=== PATIENT | female | born 1995 | race Hispanic/Latino ===

== ENCOUNTER 2022-02-21 08:07 | Emergency (ER) | payer BC ==
--- OUTSIDE RECORDS SUMMARY | 2022-02-21 08:10 | XMS REPORT | Continuity of Care Document ---
:1995 Author Organization [facility] t Address [address] [place] [address] Care Team Providers Name Role Phone Pcp, Patient Does Not Have A Primary Care Physician [id number] LANIE FLORES Attending Clinician Unavailable Sandra PRINCIPAL STRATEGISTLanie Attending Clinician Richa Antoine MD Attending Clinician Richa ROMERO, Sugey Wen Attending Clinician Unavailable Starla Vincent Attending Clinician RICHA ANTOINE Attending Clinician Unavailable Adiel Joseph MD Attending Clinician ADIEL JOSEPH Attending Clinician Unavailable Provider, [facility] Attending Clinician Unavailable STARLA AGUILERA Attending Clinician Unavailable Payers Payer Name Policy Type Policy Number Effective Date Expiration Date S angeliaelan [facility] [id number] 2020 00:00:00 Problems Condition Condition Condition Status Onset Resolution Last Treating Co mments Source Name Details Category Date Date Treatment Clinician Date No known No known Disease Unive rs active active ity of problems problems [facility] Allergies, Adverse Reactions, Alerts Allergy Allergy Status Severity Reaction(s) Onset Inactive Treating Comm ents Source Name Type Date Date Clinician NO KNOWN Drug Active Univers ALLERGIE Class ity of S [facility] Social History Social Habit Start Date Stop Date Quantity Comments Source Exposure to Not sure [facility] SARS-CoV-2 (event) Medica l Branch Tobacco use and 2018-09-01 2018-09-01 Never used [facility] [place] exposure 00:00:00 00:00:00 [facility] Branch Sex Ass[birth year] At [birth year] [facility] 00:00:00 00:00:00 Medical Branch Smoking Status Start Date Stop Date Source Never smoker [facility] Medications Ordered Filled Start Stop Current Ordering Indication Dosage Frequency Signature Comments Components Source Medication Medication Date Date Medication? Clinician (SIG) Name Name fexofenadin Yes [id number] 1{tbl} Take 1 Univers e-pseudoeph 1-25 tablet by ity of edrine 00:00: mouth 2 [place] (JENNIFER-D) 00 (two) Medical 60-120 mg times Branch per tablet daily. METHIMAZOLE Yes Take by Uni vers ORAL 4-17 mouth. ity of 17:48: [address] pantoprazol Yes Take by Uni vers e sodium 4-17 mouth. ity of (PANTOPRAZO 17:48: [place] LE ORAL) [address] [place] [address] METHIMAZOLE Yes Take by Uni vers ORAL 4-17 mouth. ity of 17:48: [address] pantoprazol Yes Take by Uni vers e sodium 4-17 mouth. ity of (PANTOPRAZO 17:48: [place] LE ORAL) [address] [place] [address] METHIMAZOLE Yes Take by Uni vers ORAL 4-17 mouth. ity of 17:48: [address] pantoprazol Yes Take by Uni vers e sodium 4-17 mouth. ity of (PANTOPRAZO 17:48: [place] LE ORAL) [address] [place] [address] METHIMAZOLE Yes Take by Uni vers ORAL 4-17 mouth. ity of 17:48: [address] pantoprazol Yes Take by Uni vers e sodium 4-17 mouth. ity of (PANTOPRAZO 17:48: [place] LE [place]AL) [address] [place] [address] METHIMAZOLE Yes Take by Uni vers ORAL 4-17 mouth. ity of 17:48: [address] pantoprazol Yes Take by Uni vers e sodium 4-17 mouth. ity of (PANTOPRAZO 17:48: [place] LE [place]AL) [address] [place] [address] METHIMAZOLE Yes Take by Uni vers ORAL 4-17 mouth. ity of 17:48: [place] [address] Medical Branch pantoprazol Yes Take by Uni vers e sodium 4-17 mouth. ity of (PANTOPRAZO 17:48: [place] LE ORAL) Medical Branch METHIMAZOLE Yes Take by Uni vers ORAL 4-17 mouth. ity of 17:48: [address] Branch pantoprazol Yes Take by Uni vers e sodium 4-17 mouth. ity of (PANTOPRAZO 17:48: [place] LE ORAL) [address] [place] [address] Branch METHIMAZOLE Yes Take by Uni vers ORAL 4-17 mouth. ity of 17:48: [address] Branch pantoprazol Yes Take by Uni vers e sodium 4-17 mouth. ity of (PANTOPRAZO 17:48: [place] LE ORAL) [address] [place] [address] Branch METHIMAZOLE Yes Take by Un [facility] ORAL 4-17 mouth. ity of 17:48: [address] Branch pantoprazol Yes Take by Uni vers e sodium 4-17 mouth. ity of (PANTOPRAZO 17:48: [place] LE ORAL) [address] [place] [address] Branch METHIMAZOLE Yes Take by Uni vers ORAL 4-17 mouth. ity of 17:48: [address] Branch pantoprazol Yes Take by Uni vers e sodium 4-17 mouth. ity of (PANTOPRAZO 17:48: [place] LE ORAL) [address] [place] [address] Branch METHIMAZOLE Yes Take by Uni vers ORAL 4-17 mouth. ity of 17:48: [address] Branch pantoprazol Yes Take by Uni vers e sodium 4-17 mouth. ity of (PANTOPRAZO 17:48: [place] LE ORAL) [address] [place] [address] Branch METHIMAZOLE Yes Take by Uni vers ORAL 4-17 mouth. ity of 12:48: [address] Branch pantoprazol Yes Take by Uni vers e sodium 4-17 mouth. ity of (PANTOPRAZO 12:48: [place] LE ORAL) [address] [place] [address] ondansetron Yes [id number] 8mg Take 1 Univers (ZOFRAN 4-17 tablet by ity of ODT) 8 mg 00:00: mouth [place] disintegrat 00 every 8 Medic al ing tablet (eight) Branch hours as needed for Nausea and Vomiting (N/V). ondansetron 2020-0 Yes [id number] 8mg Take 1 Univers (ZOFRAN 4-17 tablet by ity of ODT) 8 mg 00:00: mouth [place] disintegrat 00 every 8 Medic al ing tablet (eight) Branch hours as needed for Nausea and Vomiting (N/V). ondansetron 2020-0 Yes [id number] 8mg Take 1 Univers (ZOFRAN 4-17 tablet by ity of ODT) 8 mg 00:00: mouth [place] disintegrat 00 every 8 Medic al ing tablet (eight) Branch hours as needed for Nausea and Vomiting (N/V). ondansetron 2020-0 Yes [id number] 8mg Take 1 Univers (ZOFRAN 4-17 tablet by ity of ODT) 8 mg 00:00: mouth [place] disintegrat 00 every 8 Medic al ing tablet (eight) Branch hours as needed for Nausea and Vomiting (N/V). ondansetron 2020-0 Yes [id number] 8mg Take 1 Univers (ZOFRAN 4-17 tablet by ity of ODT) 8 mg 00:00: mouth [place] disintegrat 00 every 8 Medic al ing tablet (eight) Branch hours as needed for Nausea and Vomiting (N/V). ondansetron 2020-0 Yes [id number] 8mg Take 1 Univers (ZOFRAN 4-17 tablet by ity of ODT) 8 mg 00:00: mouth [place] disintegrat 00 every 8 Medic al ing tablet (eight) Branch hours as needed for Nausea and Vomiting (N/V). ondansetron 2020-0 Yes [id number] 8mg Take 1 Univers (ZOFRAN 4-17 tablet by ity of ODT) 8 mg 00:00: mouth [place] disintegrat 00 every 8 Medic al ing tablet (eight) Branch hours as needed for Nausea and Vomiting (N/V). ondansetron 2020-0 Yes [id number] 8mg Take 1 Univers (ZOFRAN 4-17 tablet by ity of ODT) 8 mg 00:00: mouth [place] disintegrat 00 every 8 Medic al ing tablet (eight) Branch hours as needed for Nausea and Vomiting (N/V). ondansetron 2020-0 Yes [id number] 8mg Take 1 Univers (ZOFRAN 4-17 tablet by ity of ODT) 8 mg 00:00: mouth [place] disintegrat 00 every 8 Medic al ing tablet (eight) Branch hours as needed for Nausea and Vomiting (N/V). ondansetron 2020-0 Yes [id number] 8mg Take 1 Univers (ZOFRAN 4-17 tablet by ity of ODT) 8 mg 00:00: mouth [place] disintegrat 00 every 8 Medic al ing tablet (eight) Branch hours as needed for Nausea and Vomiting (N/V). ondansetron 0 Yes [id number] 8mg Take 1 Univers (ZOFRAN 4-17 tablet by ity of ODT) 8 mg 00:00: mouth [place] disintegrat 00 every 8 Medic al ing tablet (eight) Branch hours as needed for Nausea and Vomiting (N/V). ondansetron Yes [id number] 8mg Take 1 Univers (ZOFRAN 4-17 tablet by ity of ODT) 8 mg 00:00: mouth [place] disintegrat 00 every 8 Medic al ing tablet (eight) Branch hours as needed for Nausea and Vomiting (N/V). ondansetron 2019-0 Yes [id number] 4mg Take 1 Univers 4 mg 4-06 tablet by ity of disintegrat 00:00: mouth 2 [place] as ing tablet 00 (two) Medical times Branch daily as needed for Nausea and Vomiting (N/V). ondansetron 2018-0 Yes [id number] 4mg Take 1 Univers 4 mg 4-06 tablet by ity of disintegrat 00:00: mouth 2 [place] as ing tablet 00 (two) Medical times Branch daily as needed for Nausea and Vomiting (N/V). ondansetron 2019-0 Yes [id number] 4mg Take 1 Univers 4 mg 4-06 tablet by ity of disintegrat 00:00: mouth 2 [place] as ing tablet 00 (two) Medical times Branch daily as needed for Nausea and Vomiting (N/V). ondansetron 2019-0 Yes [id number] 4mg Take 1 Univers 4 mg 4-06 tablet by ity of disintegrat 00:00: mouth 2 [place] as ing tablet 00 (two) Medical times Branch daily as needed for Nausea and Vomiting (N/V). ondansetron 2019-0 Yes [id number] 4mg Take 1 Univers 4 mg 4-06 tablet by ity of disintegrat 00:00: mouth 2 [place] as ing tablet 00 (two) Medical times Branch daily as needed for Nausea and Vomiting (N/V). ondansetron 2019-0 Yes [id number] 4mg Take 1 Univers 4 mg 4-06 tablet by ity of disintegrat 00:00: mouth 2 [place] as ing tablet 00 (two) Medical times Branch daily as needed for Nausea and Vomiting (N/V). ondansetron 2019-0 Yes [id number] 4mg Take 1 Univers 4 mg 4-06 tablet by ity of disintegrat 00:00: mouth 2 [place] ing tablet 00 (two) Medical times Branch daily as needed for Nausea and Vomiting (N/V). ondansetron 2019-0 Yes [id number] 4mg Take 1 Univers 4 mg 4-06 tablet by ity of disintegrat 00:00: mouth 2 [place] as ing tablet 00 (two) Medical times Branch daily as needed for Nausea and Vomiting (N/V). ondansetron 2019-0 Yes [id number] 4mg Take 1 Univers 4 mg 4-06 tablet by ity of disintegrat 00:00: mouth 2 [place] as ing tablet 00 (two) Medical times Branch daily as needed for Nausea and Vomiting (N/V). ondansetron 2019-0 Yes [id number] 4mg Take 1 Univers 4 mg 4-06 tablet by ity of disintegrat 00:00: mouth 2 [place] as ing tablet 00 (two) Medical times Branch daily as needed for Nausea and Vomiting (N/V). ondansetron 2019-0 Yes [id number] 4mg Take 1 Univers 4 mg 4-06 tablet by ity of disintegrat 00:00: mouth 2 [place] as ing tablet 00 (two) Medical times Branch daily as needed for Nausea and Vomiting (N/V). ondansetron 2019-0 Yes [id number] 4mg Take 1 Univers 4 mg 4-06 tablet by ity of disintegrat 00:00: mouth 2 [place] as ing tablet 00 (two) Medical times Branch daily as needed for Nausea and Vomiting (N/V). Vital Signs Vital Name Observation Time Observation Value Comments Source Body weight 2021-06-23 00:54:00 86.637 kg [facility] BMI 2021-06-23 00:54:00 31.78 kg/m2 [facility] Oxygen saturation in 2021-06-23 00:54:00 98 /min University of Arterial blood by [facility] Pulse oximetry Branch Systolic blood 2021-06-23 00:54:00 115 mm[Hg] Univer sity of pressure [place] [facility] Diastolic blood 2021-06-23 00:54:00 82 mm[Hg] Unive rsity of pressure [place] [facility] Heart rate 2021-06-23 00:54:00 79 /min Universi ty of [place] [facility] Body temperature 2021-06-23 00:54:00 36.39 Aster Univ ersity of [place] [facility] Respiratory rate 2021-06-23 00:54:00 16 /min Univ ersity of [place] [facility] Body height 2021-06-23 00:54:00 165.1 cm Universi ty of [place] [facility] Systolic blood 2021-01-27 17:07:00 124 mm[Hg] Univer sity of pressure [place] [facility] Diastolic blood 2021-01-27 17:07:00 86 mm[Hg] Unive rsity of pressure [place] [facility] Heart rate 2021-01-27 17:07:00 89 /min Universi ty of [place] [facility] Body temperature 2021-01-27 17:07:00 37.33 Aster Univ ersity of [place] [facility] Body weight 2021-01-27 17:07:00 86.665 kg Universi ty of [place] [facility] BMI 2021-01-27 17:07:00 31.79 kg/m2 Universi ty of [place] [facility] Oxygen saturation in 2021-01-27 17:07:00 98 /min University of Arterial blood by [facility] Pulse oximetry Branch Systolic blood 2020-09-12 17:45:00 117 mm[Hg] Univer sity of pressure [place] [facility] Diastolic blood 2020-09-12 17:45:00 80 mm[Hg] Unive rsity of pressure [place] [facility] Heart rate 2020-09-12 17:45:00 93 /min Universi ty of [place] [facility] Body temperature 2020-09-12 17:45:00 37.28 Aster Univ ersity of [place] [facility] Respiratory rate 2020-09-12 17:45:00 16 /min Univ ersity of [place] [facility] Body height 2020-09-12 17:45:00 165.1 cm [facility] Body weight 2020-09-12 17:45:00 81.647 kg [facility] BMI 2020-09-12 17:45:00 29.95 kg/m2 [facility] Oxygen saturation in 2020-09-12 17:45:00 98 /min [facility] blood by [facility] Pulse oximetry [place] Procedures This patient has no known procedures. Encounters Start End Encounter Admission Attending Care Care Encounter Source Date/Time Date/Time Type Type Clinicians Facility Department ID 2021-06-22 2021-06-22 Outpatient R SANDRA [facility] [id number] Univers 19:00:00 19:25:46 LANIE patel o f [facility] 2021-06-22 2021-06-22 Urgent Lanie Flores [facility] [id number] Univers 19:00:00 19:25:46 Celeste Antoine [facility] [id number] ity of [place] [id number] [place] as LUIS?BLEA [phone] [address] MEDICAL OFFICE BUILDING 2021-06-22 2021-06-22 Outpatient R [facility] [id number] Univers 19:00:00 19:00:[id number] [facility] 2021-01-29 2021-01-29 Letter JABARI Chaudhry [id number] Univers 00:00:00 00:00:00 (Out) Sugey JOHNSON [id number] it y of [facility] [id number] [place] as [id number] [address] 2021-01-27 2021-01-27 Urgent Starla Aguilera [facility] [id number] Univers 10:43:43 11:03:43 [facility] [id number] ity of [place] [id number] [place] as Luis?Blea [id number] [address] Medical Office Building 2021-01-27 2021-01-27 Outpatient R [facility] [id number] Univers 11:00:00 11:00:[id number] [facility] 2021-01-27 2021-01-27 Outpatient R ARASH [facility] [id number] Univers 11:00:00 11:00:[address] [facility] 2020-09-14 2020-09-14 [facility] MARVIN Joseph [id number] Univers 08:40:00 23:59:00 Encounter Adiel Carter [id number] ity of [facility] [id number] [place] as [id number] [address] 2020-09-14 2020-09-14 [facility] [id number] Univers 00:00:00 00:00:00 ADIEL [facility] [place] 2020-09-14 2020-09-14 [facility] [id number] Univers 00:00:00 00:00:00 [facility] [id number] it y of [place] [id number] [place] as Professio [id number] [address] Office Building One 2020-09-12 2020-09-12 Urgent Provider, [facility] [id number] Univers 12:42:00 13:22:46 Celeste Aguilera [facility] [id number] ity of [place] [id number] [place] as Professio [id number] [address] Office Building One 2020-09-12 2020-09-12 Outpatient R [facility] [id number] Univers 13:20:00 13:20:[id number] [facility] 2020-09-12 2020-09-12 [facility] [id number] Univers 13:20:00 13:20:00 [facility] Results This patient has no known results.
--- NOTE | 2022-02-21 08:51 | RAD REPORT ---
EXAM DESCRIPTION: US - 1St Trimest Single 1St Fetus - 02/21/2022 8:42 am CLINICAL HISTORY: with vaginal bleeding COMPARISON: None FINDINGS: The uterus measures 10 x 8 x 8 centimeters. A pole is present within the endometrium measuring 5.4 centimeters. Cardiac activity 162 beats per minute. 1.8 centimeter subchorionic bleed. Amniotic fluid appears normal. Right ovary normal in size and echotexture. Left ovary not seen secondary to overlying bowel gas. No significant free fluid IMPRESSION: Single live intrauterine with an estimated gestational age 12 weeks 0 days JOSE E 09/05/2022 1.8 centimeter subchorionic bleed If a survey is desired it should be performed in approximately 6 weeks
[2022-02-21 08:54] LABS: Absolute Lymphocytes (CBC) 1.5 K/uL (0.7-4.9); Hematocrit 38.8 % (36.0-45.0); Lymphocytes % 21.3 % (15.3-44.8); MCV 80.5 fL (80-100); MPV 8.6 fL (7.6-11.3); RBC Red Blood Cell Count 4.82 M/uL (3.86-4.86)
[2022-02-21 08:56] LABS: Urine Blood 2+ (Negative); Urine Glucose Negative (Negative); Urine Protein Negative (Negative); Urine pH 6.5 (5.0-7.0)
[2022-02-21 09:24] LABS: Potassium 3.7 mmol/L (3.5-5.1)
--- NOTE | 2022-02-21 09:28 | EDPHYS ---
Physician Documentation [facility] Name: Maria Esther Guzman Age: 26 yrs Sex: Female : 1995 Arrival Date: 02/21/2022 Time: 08:11 Bed 5 Private MD: ED Physician Rachid Girard HPI: 02/21 08:21 This 26 yrs old Female presents to ER via Ambulatory with complaints of ms3 Vaginal Bleeding, + Preg <12wks. 08:21 The patient presents to the emergency department with vaginal bleeding, that is light. ms3 The estimated gestational age is 12 weeks. course: care: private OB physician, Dr. Maria. Associated signs and symptoms: The patient has no apparent associated signs or symptoms. 26-year-old female G1, P0 with no past medical history presents for vaginal bleeding that is noted when wiping that began last night Patient denies pain at this time. Patient denies alleviating or inciting factors. Patient denies nausea, vomiting. Patient states her blood type is O+.. SUPERVISOR PRE WAVE: 08:18 1, Full Term 0, Premature 0, 0, Living 0, LMP 11/25/2021 jl7 08:21 1, Full Term 0, Premature 0, 0, Living 0, LMP 11/25/2021 ms3 Historical: - Allergies: 08:18 No Known Allergies; jl7 - Home Meds: 08:18 None [Active]; jl7 - PMHx: 08:18 None; jl7 - PSHx: 08:18 None; jl7 - Immunization history:: Client reports receiving the 2nd dose of the Covid vaccine. - Social history:: Smoking status: Patient denies any tobacco usage or history of. ROS: 08:21 Constitutional: Negative for fever, and chills. Neck: Negative for injury, pain, and ms3 swelling, Cardiovascular: Negative for chest pain, and palpitations. Respiratory: Negative for shortness of breath, cough, wheezing, and pleuritic chest pain, Abdomen/GI: Negative for abdominal pain, nausea, vomiting, diarrhea, and constipation. 08:21 : Positive for vaginal bleeding. 08:21 All other systems are negative. Exam: 08:21 Constitutional: This is a well developed, well nourished patient who is awake, alert, ms3 and in no acute distress. Head/Face: Normocephalic, atraumatic. Neck: Trachea midline, no cervical lymphadenopathy. Supple, full range of motion without nuchal rigidity, or vertebral point tenderness. No Meningismus. Chest/axilla: Normal chest wall appearance and motion. Nontender with no deformity. Cardiovascular: Regular rate and rhythm with a normal S1 and S2. No gallops, murmurs, or rubs. Normal PMI, no JVD. No pulse deficits. Respiratory: Lungs have equal breath sounds bilaterally, clear to auscultation and percussion. No rales, rhonchi or wheezes noted. No increased work of breathing, no retractions or nasal flaring. Abdomen/GI: Soft, non-tender, with normal bowel sounds. No distension or tympany. No guarding or rebound. No evidence of tenderness throughout. Skin: Warm, dry with normal turgor. Normal color with no rashes, no lesions, and no evidence of cellulitis. MS/ Extremity: Pulses equal, no cyanosis. Neurovascular intact. Full, normal range of motion. Neuro: Awake and alert, GCS 15, oriented to person, place, time, and situation. Cranial nerves II-XII grossly intact. Motor strength 5/5 in all extremities. Sensory grossly intact. Cerebellar exam normal. Normal gait. Vital Signs: 08:16 BP 129 / 105; Pulse 100; Resp 17; Temp 97.7; Pulse Ox 100% ; Weight 84.37 kg; Height 5 jl7 ft. 5 in. (165.10 cm); Pain 0/10; 09:30 BP 104 / 81; Pulse 71; Resp 14; Pulse Ox 100% on R/A; em6 08:16 Body Mass Index 30.95 (84.37 kg, 165.10 cm) jl7 MDM: 08:21 Differential diagnosis: threatened Ab, inevitable Ab, complete Ab, retained Ab, missed ms3 Ab. 08:25 Patient medically screened. ms3 09:28 Data reviewed: vital signs, nurses notes, lab test result(s), radiologic studies, and ms3 as a result, I will discharge patient. Counseling: I had a detailed discussion with the patient and/or guardian regarding: the historical points, exam findings, and any diagnostic results supporting the discharge/admit diagnosis, lab results, radiology results, the need for outpatient follow up, to return to the emergency department if symptoms worsen or persist or if there are any questions or concerns that arise at home. ED course: Discussed labs and ultrasound results with patient and her . 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 Patient understands and agrees with plan. All questions were answered. Return precautions discussed include worsening symptoms, or any other concerns. On reevaluation patient is alert and oriented x4, in no apparent distress, nontoxic, ambulatory in emergency department. 02/21 08:21 Order name: Basic Metabolic Panel; Complete Time: 09:25 ms3 02/21 08:21 Order name: CBC with Diff; Complete Time: 08:58 ms3 02/21 08:21 Order name: Quantitative Hcg; Complete Time: 09:25 ms3 02/21 08:57 Order name: Urine Dipstick-Ancillary; Complete Time: 08:58 EDMS 02/21 09:01 Order name: Urine --Ancillary; Complete Time: 09:21 EDMS 02/21 08:21 Order name: IV Saline Lock; Complete Time: 08:56 ms3 02/21 08:21 Order name: Labs collected and sent; Complete Time: 08:56 ms3 02/21 08:21 Order name: NPO; Complete Time: 08:56 ms3 02/21 08:21 Order name: 1st Trimest Single 1st Fetus; Complete Time: 08:58 ms3 Administered Medications: No medications were administered Point of Care Testing: Urine : 09:06 hCG Reading: Positive; Control Reading: Positive; em6 Disposition Summary: 02/21/22 09:28 Discharge Ordered Location: Home ms3 Condition: Stable ms3 Diagnosis - Threatened ms3 - Subchorionic Hemorrhage ms3 Followup: ms3 - With: Private Physician - When: 2 - 3 days - Reason: Recheck today's complaints Discharge Instructions: - Discharge Summary Sheet ms3 - Threatened Miscarriage, Jous-ti-Opmn ms3 Forms: - Medication Reconciliation Form ms3 - Thank You Letter ms3 - Antibiotic Education ms3 - Prescription Opioid Use ms3 Signatures: Dispatcher [employer] Madyson Mcknight RN RN jl7 Rachid Girard DO DO ms3 Corrections: (The following items were deleted from the chart) 09:03 08:58 URINE --ANCILLARY+UC.LAB.BRZ ordered. EDMS EDMS
--- NOTE | 2022-02-21 09:28 | ER ---
Nurse's Notes [facility] Name: Maria Esther Guzman Age: 26 yrs Sex: Female : 1995 Arrival Date: 02/21/2022 Time: 08:11 Bed 5 Private MD: Diagnosis: Threatened ;Subchorionic Hemorrhage Presentation: 02/21 08:16 Chief complaint: Patient states: Dark blood on toilet paper since yesterday, denies jl7 pain, denies cramping; denies N/V/D. Coronavirus screen: Vaccine status: Patient reports receiving the 2nd dose of the covid vaccine. At this time, the client does not indicate any symptoms associated with coronavirus-19. Ebola Screen: No symptoms or risks identified at this time. Initial Sepsis Screen: Does the patient meet any 2 criteria? No. Patient's initial sepsis screen is negative. Does the patient have a suspected source of infection? No. Patient's initial sepsis screen is negative. Risk Assessment: Do you want to hurt yourself or someone else? Patient reports no desire to harm self or others. Onset of symptoms was February 20, 2022. Care prior to arrival: None. 08:16 Method Of Arrival: Ambulatory jl7 08:16 Acuity: OPAL 3 jl7 Triage Assessment: 08:18 General: Appears in no apparent distress. uncomfortable, Behavior is calm, cooperative, jl7 appropriate for age. Pain: Denies pain. : Reports vaginal bleeding that is spotty. 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 - Social history:: Smoking status: Patient denies any tobacco usage or history of. Screenin:30 Abuse screen: Denies threats or abuse. Nutritional screening: No deficits noted. em6 Tuberculosis screening: No symptoms or risk factors identified. Fall Risk IV access (20 points). Total Salazar Fall Scale indicates No Risk (0-24 pts). Assessment: 08:19 Reassessment: Dr. Girard in triage assessing pt. jl7 08:30 General: Appears in no apparent distress. comfortable, Behavior is cooperative, em6 appropriate for age. Pain: Denies pain. Neuro: Ponce Agitation-Sedation Scale (RASS): 0 - Alert and Calm Level of Consciousness is awake, alert, obeys commands, Oriented to person, place, time, situation. Cardiovascular: Heart tones present Capillary refill < 3 seconds Patient's skin is warm and dry. Respiratory: Airway is patent Respiratory effort is even, unlabored, Respiratory pattern is regular, symmetrical, Breath sounds are clear bilaterally. GI: Abdomen is non-distended. : No signs and/or symptoms were reported regarding the genitourinary system. EENT: No signs and/or symptoms were reported regarding the EENT system. 09:30 Reassessment: Patient appears in no apparent distress at this time. No changes from em6 previously documented assessment. Patient and/or family updated on plan of care and expected duration. Pain level reassessed. Patient is alert, oriented x 3, equal unlabored respirations, skin warm/dry/pink. Vital Signs: 08:16 BP 129 / 105; Pulse 100; Resp 17; Temp 97.7; Pulse Ox 100% ; Weight 84.37 kg; Height 5 jl7 ft. 5 in. (165.10 cm); Pain 0/10; 09:30 BP 104 / 81; Pulse 71; Resp 14; Pulse Ox 100% on R/A; em6 08:16 Body Mass Index 30.95 (84.37 kg, 165.10 cm) 7 ED Course: 08:11 Patient arrived in ED. rg4 08:13 Rachid Girard DO is Attending Physician. ms3 08:18 Triage completed. jl7 08:18 Arm band placed on right wrist. jl7 08:30 Bed in low position. Call light in reach. Side rails up X 1. Pulse ox on. NIBP on. Warm em6 blanket given. 08:30 Inserted saline lock: 20 gauge in right antecubital area, using aseptic technique. em6 Blood collected. 08:44 1st Trimest Single 1st Fetus In Process Unspecified. EDMS 08:48 Jason Campoverde, RN is Primary Nurse. jd3 09:04 IV discontinued, intact, bleeding controlled, No redness/swelling at site. Pressure em6 dressing applied, patient requested for iv to be removed. provider notified. 09:51 No provider procedures requiring assistance completed. em6 Administered Medications: No medications were administered Medication: 09:51 VIS not applicable for this client. em6 Point of Care Testing: Urine : :06 hCG Reading: Positive; Control Reading: Positive; em6 Outcome: 09:28 Discharge ordered by . ms3 09:51 Discharged to home ambulatory, with significant other. em6 09:51 Condition: stable 09:51 Discharge instructions given to patient, significant other, Instructed on discharge instructions, follow up and referral plans. Demonstrated understanding of instructions, follow-up care. 09:51 Patient left the ED. em6 Signatures: Dispatcher [employer] EDMS Jana Suero rg4 Madyson Hernandez RN RN jl7 Jason Campoverde, RN RN jd3 Rachid Girard DO DO ms3 Augusta Wilkinson, RN RN em6
[2022-02-23 10:41] VITALS: BP 104/81; O2SAT 100
[2022-02-23 10:56] VITALS: TEMP 97.7
== END 2022-02-21 09:51 | disposition home or self-care (01) ==
LOC: ER 08:07
DX: O20.0 Threatened abortion (principal); Z3A.12 12 weeks gestation of pregnancy
CPT/HCPCS: 36415; 76801; 80048; 81003; 81025; 84702; 85025; 99284